=== PATIENT | female | born 1995 | race African-American/Black ===

== ENCOUNTER 2022-09-07 18:15 | Emergency (ER) | payer MEDICAID ==
[~2022-09-07] VITALS: Ht 175.3 cm; Wt 84.0 kg
[2022-09-07 18:39] VITALS: BP 121/86
== END 2022-09-08 00:30 | disposition left against medical advice (07) ==
LOC: ER 21:00
DX: Z53.21 Procedure and treatment not carried out due to patient leaving prior to being seen by health care provider (principal)